=== PATIENT | female | born 1990 | race Hispanic/Latino ===

== ENCOUNTER 2019-11-10 20:35 | Emergency (ER) | payer SELFPAY ==
[2019-11-10] MEDS ORDERED: Acetaminophen 500 MG TAB ONE (21:14)
[2019-11-10] MEDS ORDERED: Ibuprofen 200 MG TAB ONE (21:18)
== END 2019-11-10 22:10 | disposition home or self-care (01) ==
LOC: ERS 20:35
DX: J10.1 Influenza due to other identified influenza virus with other respiratory manifestations (principal)
CPT/HCPCS: 87804; 99283

== ENCOUNTER 2020-03-01 18:29 | Emergency (ER) | payer BC, SELFPAY ==
[2020-03-01 19:24] LABS: #Basophils 0.1 thou/uL (0.0-0.2); #Eosinphils 0.1 thou/uL (0.0-0.7); #Lymphocytes 2.8 thou/uL (1.20-3.40); #Monocytes 0.2 thou/uL (0.11-0.59); #Neutrophils 5.1 thou/uL (1.40-6.50); %Basophils 1.1 % (0.0-1.0); %Eosinophils 1.2 % (0.0-10.0); %Lymphocytes 34.2 % (21.0-51.0); %Monocytes 2.4 % (0.0-10.0); %Neutrophils 61.1 % (42.0-75.0); Hemoglobin 13.5 g/dL (12.0-16.0); Mean Corpuscular Hemoglobin 29.6 pg (27.0-31.0); Mean Corpuscular Volume 87.2 fL (78.0-98.0); Mean Platelet Volume 7.6 fL (7.4-10.4); Platelet Count 370 thou/uL (130-400); RBC Distribution Width 11.7 % (11.5-14.5); Red Blood Cell (RBC) Count 4.55 mill/uL (4.20-5.40); White Blood Cell (WBC) Count 8.3 thou/uL (4.8-10.8)
[2020-03-01 19:46] LABS: ALT (SGPT) 40 U/L (8-55); AST (SGOT) 22 U/L (5-34); Albumin 4.6 g/dL (3.5-5.0); Alkaline Phosphatase 80 U/L (40-110); Anion Gap 14 mmol/L (10-20); BUN (Urea Nitrogen) 7 mg/dL (7.0-18.7); Bilirubin, Total 0.6 mg/dL (0.2-1.2); Calc. Creatinine Clearance 0 mL/min (70-130); Calcium 8.8 mg/dL (7.8-10.44); Carbon Dioxide 22 mmol/L (22-29); Chloride 107 mmol/L (98-107); Estimated GFR-MDRD Greater than 90; Globulin 3.1 g/dL (2.4-3.5); Glucose 85 mg/dL (70-105); Lipase 36 U/L (8-78); Potassium 3.4 mmol/L (3.5-5.1); Protein, Total 7.7 g/dL (6.0-8.3); Sodium 140 mmol/L (136-145)
[2020-03-01 19:49] LABS: BHCG - Serum Negative (NEGATIVE); Pregs Control Background? CLEAR/WHITE (CLR/WHITE); Pregs Control Bar Appear? YES (CONTROL BAR)
--- NOTE | 2020-03-01 21:09 | RAD ---
PORTABLE CHEST: Date: 03-01-2020 Provided Clinical History: Chest tightness. FINDINGS: No comparison. Cardiac and mediastinal silhouette is within normal limits. No focal consolidation, pleural fluid or pneumothorax is evident. IMPRESSION: No evidence for an acute cardiopulmonary process. POS: [facility]
== END 2020-03-01 21:00 | disposition home or self-care (01) ==
LOC: ERS 18:29
DX: R07.89 Other chest pain (principal); F41.9 Anxiety disorder, unspecified; E55.9 Vitamin D deficiency, unspecified; Z79.899 Other long term (current) drug therapy
CPT/HCPCS: 36415; 71045; 80053; 83690; 84484; 84703; 85025; 93005; 94760

== ENCOUNTER 2021-05-11 | Emergency (ER) | payer BC | END 2021-05-12 00:48 | disposition home or self-care (01) ==

== ENCOUNTER 2021-10-03 16:42 | Emergency (ER) | payer BC ==
[~2021-10-03 16:42] MED LIST: Iopamidol 370 76% 50 ML VIAL FS ONE
[2021-10-03 17:51] LABS: Bilirubin Negative (Negative); Blood, Urine Large (Negative); Glucose, Urine (Dipstick) Negative (Negative); Ketone, Urine Negative (Negative); Leukocyte Negative (Negative); Nitrite Negative (Negative); Protein, Urine (Dipstick) Negative (Neg-Trace); Urobilinogen 0.2 mg/dL (Less than 2); pH, Urine 6.5 (5.0-9.0)
[2021-10-03 17:59] LABS: Clarity Clear (Clear)
[2021-10-03 18:01] LABS: RBC/HPF 0-3 HPF (0-3); Squamous Epithelial 0-3 HPF (0-3); WBC/HPF 0-3 HPF (0-3)
[2021-10-03 18:03] LABS: Pregnancy Test - Urine (BHCG) Negative (Negative); Pregu Control Background? CLEAR/WHITE (CLR/WHITE); Pregu Control Bar Appear? YES (CONTROL BAR); Specific Gravity 1.016 (1.002-1.036)
[2021-10-03 18:04] LABS: #Eosinphils 0.1 thou/uL (0.0-0.7); #Lymphocytes 1.8 thou/uL (1.20-3.40); #Monocytes 0.3 thou/uL (0.11-0.59); #Neutrophils 4.6 thou/uL (1.40-6.50); %Basophils 0.3 % (0.0-1.0); %Eosinophils 1.2 % (0.0-10.0); %Lymphocytes 25.9 % (21.0-51.0); %Monocytes 4.7 % (0.0-10.0); Hemoglobin 12.5 g/dL (12.0-16.0); Mean Corpuscular HGB CONC 33.3 g/dL (32.0-36.0); Mean Corpuscular Volume 90.2 fL (78.0-98.0); Mean Platelet Volume 7.7 fL (7.4-10.4); Platelet Count 298 thou/uL (130-400); RBC Distribution Width 11.4 % (11.5-14.5); Red Blood Cell (RBC) Count 4.18 mill/uL (4.20-5.40); White Blood Cell (WBC) Count 6.8 thou/uL (4.8-10.8)
[2021-10-03 18:25] LABS: ALT (SGPT) 42 U/L (8-55); AST (SGOT) 22 U/L (5-34); Albumin 4.2 g/dL (3.5-5.0); Alkaline Phosphatase 70 U/L (40-110); Anion Gap 14 mmol/L (10-20); BUN (Urea Nitrogen) 6 mg/dL (7.0-18.7); Bilirubin, Total 0.4 mg/dL (0.2-1.2); Calc. Creatinine Clearance 0 mL/min (70-130); Calcium 8.9 mg/dL (7.8-10.44); Carbon Dioxide 26 mmol/L (22-29); Chloride 105 mmol/L (98-107); Glucose 117 mg/dL (70-105); Potassium 3.6 mmol/L (3.5-5.1); Protein, Total 7.2 g/dL (6.0-8.3); Sodium 141 mmol/L (136-145)
[2021-10-03] MEDS ORDERED: diphenhydrAMINE 50 MG/ML VIAL ONE (19:08)
[2021-10-03] MEDS ORDERED: Ketorolac Tromethamine 30 MG/ML VIAL ONE (19:08)
[2021-10-03] MEDS ORDERED: Prochlorperazine 10 MG/2 ML VIAL ONE (19:10)
== END 2021-10-03 20:50 | disposition home or self-care (01) ==
LOC: ERS 16:42
DX: R10.2 Pelvic and perineal pain (principal); R51.9 Headache, unspecified; E55.9 Vitamin D deficiency, unspecified; F17.290 Nicotine dependence, other tobacco product, uncomplicated; Z79.899 Other long term (current) drug therapy
CPT/HCPCS: 36415; 74177; 80053; 81003; 81015; 81025; 85025; 96374; 96375; J0780; J1200; J1885; Q9967